=== PATIENT | female | born 1980 | race African-American/Black ===

== ENCOUNTER 2024-05-15 13:42 | Inpatient (IN) | payer OTHER ==
[2024-05-15 14:38] VITALS: BMI 23.0
[2024-05-15] MEDS ORDERED: BENZONATATE 200 MG CAPSULE PO PRN (15:12)
[2024-05-15] MEDS ORDERED: IBUPROFEN 400 MG TABLET (FP) PO PRN (15:12)
[2024-05-15] MEDS ORDERED: guaiFENesin 600 MG TABLET.ER (FP) PO PRN (15:12)
[2024-05-15] MEDS ORDERED: MAG HYDROX/AL HYDROX/SIMETH 30 ML UNIT-DOSE CUP PO PRN (15:12)
[2024-05-15] MEDS ORDERED: ONDANSETRON *ODT* 4 MG TABLET SL PRN (15:12)
[2024-05-15] MEDS ORDERED: MAGNESIUM HYDROX 2400MG/30ML ORAL SUSPENSION 30 ML CUP PO PRN (15:12)
[2024-05-15] MEDS ORDERED: POLYETHYLENE GLYCOL (HEALTHYLAX) 3350 17 GM PACKET PO PRN (15:12)
[2024-05-15] MEDS ORDERED: LOPERAMIDE HCL 2 MG CAPSULE PO PRN (15:12)
[2024-05-15] MEDS ORDERED: NALOXONE (NARCAN) HCL 4 MG/0.1 ML SPRAY NS PRN (15:12)
[2024-05-15] MEDS ORDERED: IBUPROFEN 600 MG TABLET (FP) PO PRN (15:12)
[2024-05-15] MEDS ORDERED: BENZOCAINE/MENTHOL (CHLORASEPTIC ) LOZENGE MM PRN (15:12)
[2024-05-15] MEDS: diazePAM 5 MG TABLET PO SCH (18:30)
[2024-05-15] MEDS ORDERED: diazePAM 5 MG TABLET ONE (19:46)
[2024-05-15] MEDS: THIAMINE 100 MG TABLET PO SCH (22:45)
[2024-05-15] MEDS: MELATONIN 5 MG TABLETS PO SCH (22:45)
[2024-05-16] MEDS: methaDONE 40 MG, methaDONE 30 MG PO ONE (10:46)
[2024-05-16] MEDS: DIVALPROEX SODIUM 500 MG TABLET E.C. PO SCH (10:46)
[2024-05-16] MEDS: PRENATAL VITAMINS W/ FOLIC ACID TABLET (FP) PO SCH (10:46)
[2024-05-16] MEDS ORDERED: ESCITALOPRAM OXALATE 10 MG TABLET ONE (11:28)
[2024-05-16] MEDS: QUEtiapine FUMARATE 50 MG TABLET PO SCH (11:29)
[2024-05-16] MEDS: ESCITALOPRAM OXALATE 20 MG TABLET PO SCH (11:29)
[2024-05-16 12:32] LABS: HEMATOCRIT 40.1 % (34.1-44.9); HEMOGLOBIN 12.7 g/dL (11.2-15.7); MCHC 31.7 g/dl (32.2-35.5); MEAN CELL VOLUME 95.9 fl (79.4-94.8); MEAN PLT VOLUME 9.6 fl (9.4-12.3); PLATELET COUNT 328 x10^3/uL (182-369)
[2024-05-16 12:37] LABS: CHLORIDE 107 mmol/L (98-107); POTASSIUM 4.3 mmol/L (3.5-5.1); SODIUM 137 mmol/L (136-145)
[2024-05-16 12:51] LABS: BLOOD UREA NITROGEN 9.8 mg/dL (7-18); CALCIUM 9.4 mg/dL (8.5-10.1)
[2024-05-16 12:52] LABS: ALBUMIN 3.3 g/dl (3.4-5.0); ANION GAP 5 mmol/L (4-13); CO2 25 mmol/L (21-32); GLUCOSE,RANDOM 118 mg/dL (74-106)
[2024-05-16 12:55] LABS: CREATININE 0.7 mg/dL (0.55-1.3); SGOT/AST 15 U/L (15-37)
[2024-05-16 12:56] LABS: BILIRUBIN,TOTAL 0.5 mg/dL (0.2-1); SGPT/ALT 17 U/L (13-61); TOT PROT 6.4 g/dl (6.4-8.2)
[2024-05-16 12:58] LABS: ALK PHOS 35 U/L (45-117)
[2024-05-16] MEDS: GABAPENTIN 300 MG CAPSULE PO SCH (13:22)
[2024-05-16] MEDS: diazePAM 5 MG TABLET PO SCH (23:54)
[2024-05-17] MEDS: diazePAM 5 MG TABLET PO SCH (05:53)
[2024-05-17] MEDS ORDERED: diazePAM 5 MG TABLET PO SCH (06:00)
[2024-05-17] MEDS ORDERED: ESCITALOPRAM OXALATE 10 MG TABLET ONE (09:08)
[2024-05-17] MEDS: methaDONE 40 MG, methaDONE 20 MG PO ONE (09:35)
[2024-05-17] MEDS: ACETAMINOPHEN 325 MG TABLET (FP) PO PRN (09:37)
[2024-05-18] MEDS ORDERED: diazePAM 5 MG TABLET PO PRN (05:00)
[2024-05-18] MEDS: diazePAM 5 MG TABLET PO SCH (05:59)
[2024-05-18] MEDS ORDERED: ESCITALOPRAM OXALATE 10 MG TABLET ONE (09:05)
[2024-05-18] MEDS: methaDONE 40 MG, methaDONE 10 MG PO ONE (09:55)
[2024-05-18] MEDS: methaDONE HCL 10 MG TABLET PO ONE (11:53)
[2024-05-18] MEDS: diazePAM 5 MG TABLET PO PRN (13:06)
[2024-05-18] MEDS: NICOTINE POLACRILEX 2 MG GUM BUC PRN (17:22)
[2024-05-18 18:16] VITALS: RESP 16
[2024-05-18] MEDS ORDERED: QUEtiapine FUMARATE 25 MG TABLET ONE ×2 (22:23→22:36)
[2024-05-18] MEDS: METHOCARBAMOL 500 MG TABLET PO PRN (22:34)
[2024-05-18] MEDS: DICYCLOMINE HCL 10 MG CAPSULE PO PRN (22:34)
[2024-05-19] MEDS: methaDONE 40 MG, methaDONE 30 MG PO ONE (05:50)
[2024-05-19] MEDS ORDERED: methaDONE HCL 10 MG TABLET PO ONE (06:00)
[2024-05-19] MEDS ORDERED: QUEtiapine FUMARATE 25 MG TABLET ONE (09:48)
[2024-05-19] MEDS ORDERED: ESCITALOPRAM OXALATE 10 MG TABLET ONE (09:48)
[2024-05-19] MEDS ORDERED: methaDONE HCL 40 MG DISPERSABLE TABLET PO ONE (10:00)
[2024-05-19] MEDS: NICOTINE 14 MG/24 HOURS TOPICAL PATCH TD SCH (10:44)
[2024-05-19] MEDS: BISMUTH SUBSALICYLATE 524 MG/30 ML PO PRN (17:10)
[2024-05-19] MEDS: SUVOREXANT 10 MG TABLET PO PRN (22:04)
[2024-05-20] MEDS ORDERED: methaDONE HCL 10 MG TABLET PO ONE ×2 (06:00)
[2024-05-20] MEDS: diazePAM 5 MG TABLET PO SCH (06:07)
[2024-05-20] MEDS: methaDONE HCL 40 MG DISPERSABLE TABLET PO SCH (06:07)
[2024-05-20] MEDS ORDERED: ESCITALOPRAM OXALATE 10 MG TABLET ONE (09:33)
[2024-05-20] MEDS ORDERED: BUPRENORPHINE/NALOXONE 0.5 MG/0.125 MG FILM SL ONE ×2 (10:00→23:00)
[2024-05-20] MEDS: hydrOXYzine PAMOATE 25 MG CAPSULE (FP) PO PRN (10:42)
[2024-05-20] MEDS ORDERED: LORazepam 0.5 MG TABLET PO PRN (13:12)
[2024-05-20] MEDS: LORazepam 0.5 MG TABLET PO SCH (14:08)
[2024-05-20] MEDS ORDERED: methaDONE HCL 10 MG TABLET (FOR DETOX USE ONLY) PO PRN (16:01)
[2024-05-20] MEDS ORDERED: methaDONE HCL 10 MG TABLET (FOR DETOX USE ONLY) PO ONE (16:15)
[2024-05-20] MEDS ORDERED: cloNIDine HCL 0.1 MG TABLET PO SCH (18:00)
[2024-05-21] MEDS: LORazepam 0.5 MG TABLET PO SCH (05:50)
[2024-05-21] MEDS ORDERED: ESCITALOPRAM OXALATE 10 MG TABLET ONE (09:07)
[2024-05-21] MEDS ORDERED: BUPRENORPHINE/NALOXONE 0.5 MG/0.125 MG FILM SL SCH (10:00)
[2024-05-21] MEDS ORDERED: diazePAM 5 MG TABLET PO SCH (10:00)
[2024-05-22] MEDS ORDERED: cloNIDine HCL 0.1 MG TABLET PO PRN (00:01)
[2024-05-22] MEDS ORDERED: diazePAM 5 MG TABLET PO ONE (06:00)
[2024-05-22] MEDS: LORazepam 0.5 MG TABLET PO ONE (07:02)
[2024-05-22] MEDS ORDERED: BUPRENORPHINE/NALOXONE 2 MG/0.5 MG FILM PACKET SL SCH (10:00)
[2024-05-22] MEDS ORDERED: methaDONE HCL 10 MG TABLET (FOR DETOX USE ONLY) PO ONE (10:00)
[2024-05-22] MEDS ORDERED: ESCITALOPRAM OXALATE 10 MG TABLET ONE (10:03)
[2024-05-22 12:34] VITALS: BP 106/60; PULSE 68; TEMP 98.4
[2024-05-23] MEDS ORDERED: BUPRENORPHINE/NALOXONE 4 MG/1 MG FILM PACKET SL SCH (10:00)
[2024-05-24] MEDS ORDERED: BUPRENORPHINE/NALOXONE 8 MG/2 MG FILM PACKET SL SCH (10:00)
[2024-05-24] MEDS ORDERED: methaDONE HCL 10 MG TABLET (FOR DETOX USE ONLY) PO ONE (10:00)
[2024-05-25] MEDS ORDERED: BUPRENORPHINE/NALOXONE 8 MG/2 MG FILM PACKET SL ONE (06:00)
== END 2024-05-22 10:26 | disposition home or self-care (01) | DRG 773 ==
LOC: YASAS 13:42 → Y6N 19:36
PROVIDERS: ADMIT Allergy & Immunology; ATTEND Allergy & Immunology
PROC: HZ2ZZZZ Detoxification Services for Substance Abuse Treatment (ICD-10-PCS; principal; 2024-05-15)
DX: F13.230 Sedative, hypnotic or anxiolytic dependence with withdrawal, uncomplicated (principal); F11.20 Opioid dependence, uncomplicated; F17.213 Nicotine dependence, cigarettes, with withdrawal; F19.282 Other psychoactive substance dependence with psychoactive substance-induced sleep disorder; F19.280 Other psychoactive substance dependence with psychoactive substance-induced anxiety disorder; F19.24 Other psychoactive substance dependence with psychoactive substance-induced mood disorder; F31.9 Bipolar disorder, unspecified; F43.10 Post-traumatic stress disorder, unspecified; E03.9 Hypothyroidism, unspecified; J45.909 Unspecified asthma, uncomplicated; M54.50 Low back pain, unspecified; G89.29 Other chronic pain; Z87.19 Personal history of other diseases of the digestive system; Z62.810 Personal history of physical and sexual abuse in childhood; Z91.410 Personal history of adult physical and sexual abuse; Z63.8 Other specified problems related to primary support group; Z63.0 Problems in relationship with spouse or partner; Z88.8 Allergy status to other drugs, medicaments and biological substances
CPT/HCPCS: 36415; 80053; 80164; 80305; 80307; 81025; 84439; 84443; 84480; 84481; 85027; 86780; 87522; 93005; 93010